=== PATIENT | female | born 1980 | race African-American/Black ===

== ENCOUNTER 2021-02-03 19:38 | Emergency (ER) | payer SELFPAY ==
[2021-02-03 20:36] LABS: Urine Blood Negative (Negative); Urine Glucose Negative (Negative); Urine Protein Negative (Negative); Urine Specific Gravity 1.025 (1.005-1.030)
[2021-02-03 20:39] LABS: Absolute Lymphocytes (CBC) 2.8 K/uL (0.7-4.9); Basophils % 0.8 % (0-1.3); Hematocrit 42.9 % (36.0-45.0); Lymphocytes % 31.8 % (15.3-44.8); RBC Red Blood Cell Count 5.15 M/uL (3.86-4.86)
[2021-02-03 20:47] LABS: ALT/SGPT 86 U/L (12-78); AST/SGOT 28 U/L (15-37); Albumin 3.2 g/dL (3.4-5.0); Alkaline Phosphatase 133 U/L (45-117); BUN Blood Urea Nitrogen 23 mg/dL (7-18); Bicarbonate 27 mmol/L (21-32); Bilirubin Direct < 0.1 mg/dL (0-0.2); Bilirubin Total 0.3 mg/dL (0.2-1.0); Glucose Level 121 mg/dL (74-106); Lipase 182 U/L (73-393); Potassium 4.2 mmol/L (3.5-5.1); Protein, Total 7.4 g/dL (6.4-8.2); Sodium Level 142 mmol/L (136-145)
[2021-02-03 20:51] LABS: Urine Bacteria <20 /HPF (<20); Urine RBC NONE SEEN /HPF (NONE SEEN)
[2021-02-03] MEDS ORDERED: MORPHINE 4 MG/ML SYR ONE (21:24)
[2021-02-03] MEDS ORDERED: NA CHLORIDE 0.9% 1,000 ML ONE (21:24)
[2021-02-03] MEDS ORDERED: ONDANSETRON 4 MG/2 ML VIAL ONE (21:24)
--- NOTE | 2021-02-03 21:40 | RAD REPORT ---
EXAM DESCRIPTION: CT - Abdomen Pelvis W Contrast - 02/03/2021 9:29 pm CLINICAL HISTORY: Abdominal pain COMPARISON: none. TECHNIQUE: Computed axial tomography of the abdomen pelvis was obtained. 100 cc Isovue-300 was admin istered intravenously. Oral contrast was not requested which limits evaluation of bowel. All CT scans are performed using dose optimization technique as appropriate and may include automated exposure control or mA/KV adjustment according to patient size. FINDINGS: The liver, spleen, pancreas, adrenal and right kidney appear unremarkable. Small left roderick l cyst. There is no evidence of diverticulitis. Normal appendix No adnexal mass IMPRESSION: No acute abnormality is displayed.
[2021-02-03 21:44] LABS: Urine Specific Gravity/Preg 1.025 (1.005-1.030)
[2021-02-03] MEDS ORDERED: FENTANYL CITR 100 MCG/2 ML ONE ×2 (21:49→22:06)
[2021-02-03] MEDS ORDERED: HYDROMORPHONE HCL 2 MG/ML inj ONE ×2 (22:34→23:24)
--- NOTE | 2021-02-04 00:10 | ER ---
Nurse's Notes [facility] Name: Noemí Alatorre Age: 40 yrs Sex: Female : 1980 Arrival Date: 02/03/2021 Time: 19:39 Bed 2 Private MD: Diagnosis: Female pelvic inflammatory disease, unspecified Presentation: 02/03 19:55 Chief complaint: Patient states: x2 days of pelvic pain, severe today; Reports pressure lp1 to pelvic area, burning with urination; Denies fever, N/V/D. Coronavirus screen: At this time, the client does not indicate any symptoms associated with coronavirus-19. Risk Assessment: Do you want to hurt yourself or someone else? Patient reports no desire to harm self or others. Onset of symptoms was February 03, 2021. 19:55 Method Of Arrival: Ambulatory lp1 19:55 Acuity: BETTE 2 lp1 19:57 Ebola Screen: No symptoms or risks identified at this time. Initial Sepsis Screen: Does lp1 the patient meet any 2 criteria? No. Patient's initial sepsis screen is negative. Does the patient have a suspected source of infection? No. Patient's initial sepsis screen is negative. 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 - Social history:: Smoking status: Patient reports the use of cigarette tobacco products, smokes one-half pack cigarettes per day. Screenin/01 00:54 Abuse screen: Denies threats or abuse. Denies injuries from another. Nutritional lp1 screening: No deficits noted. Tuberculosis screening: No symptoms or risk factors identified. Fall Risk None identified. Assessment: 02/03 20:15 General: Appears uncomfortable, obese, well groomed, well developed, well nourished, bs2 Behavior is cooperative, appropriate for age. Pain: Complains of pain in right lower quadrant Pain currently is 10 out of 10 on a pain scale. Pain began gradually, 1 day ago. Neuro: No deficits noted. Cardiovascular: No deficits noted. Respiratory: No deficits noted. GI: Abdomen is round non-distended, obese, Abd is soft and non tender X 4 quads. 02/04 00:54 Reassessment: Patient is alert, oriented x 3, equal unlabored respirations, skin lp1 warm/dry/pink. Patient states feeling better. Patient states symptoms have improved. Vital Signs: 02/03 19:57 BP 148 / 77; Pulse 93; Resp 20; Temp 98.5(O); Pulse Ox 97% on R/A; Weight 141.52 kg lp1 (R); Height 5 ft. 2 in. (157.48 cm); Pain 01/13; 19:57 Body Mass Index 57.06 (141.52 kg, 157.48 cm) lp1 ED Course: 19:39 Patient arrived in ED. bp1 19:56 Triage completed. lp1 19:56 Arm band placed on. lp1 20:05 Stefan Moore PA is PHCP. cp 20:05 Aron Turk MD is Attending Physician. cp 20:16 Kamilla Lyles, RN is Primary Nurse. bs2 20:30 Basic Metabolic Panel Sent. bs2 20:30 CBC with Diff Sent. bs2 20:30 Hepatic Function Sent. bs2 20:30 Lipase Sent. bs2 20:30 Urine Microscopic Only Sent. bs2 20:44 Urine --Ancillary (enter results) Sent. bs2 20:44 Urine Microscopic Only Sent. bs2 20:44 Urine Microscopic Only Sent. bs2 21:29 CT Abd/Pelvis - IV Contrast Only In Process Unspecified. EDMS 22:18 US Transvaginal Study (Probe) In Process Unspecified. EDMS 23:35 Wet Prep Sent. bs2 23:35 Wet Prep Sent. bs2 23:35 GC (GONORR/CHLAMYDIA) Probe Sent. bs2 02/04 00:08 Nancy Gamino MD is Referral Physician. cp 00:54 Patient has correct armband on for positive identification. lp1 00:54 IV discontinued, No redness/swelling at site. Pressure dressing applied. lp1 00:54 No provider procedures requiring assistance completed. lp1 Administered Medications: 02/03 20:27 Drug: morphine 4 mg Route: IVP; Site: left forearm; bs2 20:53 Follow up: Response: Pain is unchanged, physician notified bs2 20:27 Drug: Zofran (Ondansetron) 4 mg Route: IVP; Site: left forearm; bs2 20:53 Follow up: Response: No adverse reaction bs2 20:28 Drug: NS 0.9% 1000 ml Route: IV; Rate: 1 bolus; Site: left forearm; bs2 20:54 Drug: fentaNYL (PF) 50 mcg Route: IVP; Site: left forearm; bs2 21:17 Follow up: Response: Pain is unchanged, physician notified bs2 21:07 Drug: fentaNYL (PF) 50 mcg Route: IVP; Site: left forearm; bs2 22:20 Follow up: Response: No adverse reaction; Pain is unchanged, physician notified bs2 22:25 Drug: Dilaudid (HYDROmorphone) 1 mg Route: IVP; Site: left forearm; lh3 23:25 Drug: Dilaudid (HYDROmorphone) 1 mg Route: IVP; Site: left forearm; bs2 23:35 Drug: Rocephin (cefTRIAXone) 1 grams Route: IV; Rate: calculated rate; Site: left bs2 forearm; 23:35 Drug: Zithromax (azithromycin) 1 grams Route: PO; bs2 11 00:53 Drug: Hydrocodone-Acetaminophen (10 mg-500 mg) 1 tabs Route: PO; lp1 00:53 Follow up: Response: Medication administered at discharge. lp1 Outcome: 00:10 Discharge ordered by . cp 00:54 Discharged to home lp1 00:54 Condition: good 00:54 Discharge instructions given to patient, Instructed on discharge instructions, follow up and referral plans. medication usage, Demonstrated understanding of instructions, follow-up care, medications, Prescriptions given X 3. 01:00 Patient left the ED. lp1 Signatures: Dispatcher [employer] EDMS Karol Coates RN RN lp1 Stefan Moore PA PA cp Paniauga, Brittany bp1 Smith, Bridget, RN RN bs2 Mariella Jones RN RN lh3 Corrections: (The following items were deleted from the chart) 02/03 19:56 19:56 Allergies: No Known Allergies; lp1 lp1 19:56 19:56 PSHx: None; lp1 lp1 20:04 19:55 Acuity: BETTE 3 lp1 lp1
--- NOTE | 2021-02-04 00:11 | EDPHYS ---
Physician Documentation [facility] Name: Noemí Alatorre Age: 40 yrs Sex: Female : 1980 Arrival Date: 02/03/2021 Time: 19:39 Bed 2 Private MD: ED Physician Aron Turk HPI: 02/03 20:19 This 40 yrs old Black Female presents to ER via Ambulatory with complaints of Pain With cp Urination, Pelvic Pain. 20:19 The patient presents with abdominal pain right lower quadrant, right adnexal. Onset: cp The symptoms/episode began/occurred 2 day(s) ago. The symptoms do not radiate. Associated signs and symptoms: Pertinent positives: dysuria, vaginal discharge, Pertinent negatives: constipation, diarrhea, fever, vomiting. The symptoms are described as constant. Modifying factors: the symptoms are aggravated by movement. Severity of pain: in the emergency department the pain is unchanged. 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 - Social history:: Smoking status: Patient reports the use of cigarette tobacco products, smokes one-half pack cigarettes per day. ROS: 20:21 Constitutional: Negative for body aches, chills, fever, poor PO intake. cp 20:21 Abdomen/GI: Positive for abdominal pain. 20:21 Back: Negative for radiated pain. 20:21 : Positive for urinary symptoms, vaginal discharge. 20:21 Neuro: Negative for altered mental status, headache, weakness. 20:21 All other systems are negative. Exam: 20:22 Head/Face: Normocephalic, atraumatic. cp 20:22 Constitutional: The patient appears in no acute distress, alert, awake, non-toxic, well developed, well nourished, obese, uncomfortable. 20:22 Eyes: Periorbital structures: appear normal, Conjunctiva: normal, no exudate, no injection, Sclera: no appreciated abnormality, Lids and lashes: appear normal, bilaterally. 20:22 ENT: External ear(s): are unremarkable, Nose: is normal, Mouth: Lips: moist, Oral mucosa: moist, Posterior pharynx: Airway: no evidence of obstruction, patent. 20:22 Chest/axilla: Inspection: normal. 20:22 Cardiovascular: Rate: normal. 20:22 Respiratory: the patient does not display signs of respiratory distress, Respirations: normal, no use of accessory muscles, no retractions, labored breathing, is not present. 20:22 Abdomen/GI: Inspection: abdomen appears normal, Bowel sounds: active, all quadrants, Palpation: soft, in all quadrants, severe abdominal tenderness, in the right lower quadrant, rebound tenderness, is not appreciated, voluntary guarding, is elicited in the right lower quadrant. 23:12 : Pelvic Exam: External exam: is normal, Speculum exam: no bleeding is noted, no cp cervicitis, os that is closed, bimanual exam reveals cervical motion tenderness, uterine tenderness, right adnexal tenderness, no adnexal mass on right, no adnexal mass on left, discharge, white, the nurse was present for the exam, Sexual behavior: the patient is sexually active, and reports a single partner. Vital Signs: 19:57 BP 148 / 77; Pulse 93; Resp 20; Temp 98.5(O); Pulse Ox 97% on R/A; Weight 141.52 kg lp1 (R); Height 5 ft. 2 in. (157.48 cm); Pain 10/10; 19:57 Body Mass Index 57.06 (141.52 kg, 157.48 cm) lp1 MDM: 20:13 Patient medically screened. cp 21:00 Differential diagnosis: appendicitis, diverticulitis, Endometriosis, non-specific abd cp pain, Pyelonephritis, Ureterolithiasis, urinary tract infection, PID. 02/04 00:10 Data reviewed: vital signs, nurses notes, lab test result(s), radiologic studies, CT cp scan, ultrasound, I have discussed the patient's presentation/case with the attending Emergency Department Physician; and as a result, I will discharge patient. 00:10 Counseling: I had a detailed discussion with the patient and/or guardian regarding: the cp historical points, exam findings, and any diagnostic results supporting the discharge/admit diagnosis, lab results, radiology results, the need for outpatient follow up, an OB/Gyne specialist, to return to the emergency department if symptoms worsen or persist or if there are any questions or concerns that arise at home. Response to treatment: the patient's symptoms have markedly improved after treatment, and as a result, I will discharge patient. Special discussion: Based on the patient's Hx, exam, and Dx evaluation, there is no indication for emergent surgery or inpatient Tx. It is understood by the patient/guardian that if the Sx's persist or worsen they need to return immediately for re-evaluation. 02/03 20:05 Order name: Urine Microscopic Only cp 02/03 20:06 Order name: Urine Microscopic Only; Complete Time: 21:05 EDMS 02/03 20:14 Order name: Basic Metabolic Panel; Complete Time: 20:48 cp 02/03 20:48 Interpretation: Normal except: CL 109; GLUC 121; BUN 23; GFR 69; CA 8.4. 02/03 20:14 Order name: CBC with Diff; Complete Time: 20:48 02/03 21:06 Interpretation: Normal except: RBC 5.15. cp 02/03 20:14 Order name: Hepatic Function; Complete Time: 20:48 02/03 20:14 Order name: Lipase; Complete Time: 20:48 02/03 20:14 Order name: CT Abd/Pelvis - IV Contrast Only; Complete Time: 21:45 02/03 20:36 Order name: Urine Dipstick-Ancillary; Complete Time: 20:48 EDMS 02/03 20:40 Order name: Urine --Ancillary (enter results); Complete Time: 22:56 mw2 02/03 21:47 Order name: GC (GONORR/CHLAMYDIA) Probe 02/03 21:47 Order name: US Transvaginal Study (Probe) 02/03 23:16 Order name: Wet Prep 02/03 23:17 Order name: Wet Prep EDMS 02/03 20:05 Order name: Urine Test (obtain specimen); Complete Time: 20:44 02/03 20:05 Order name: Urine Dipstick-Ancillary (obtain specimen); Complete Time: 20:44 02/03 20:14 Order name: IV Saline Lock; Complete Time: 20:30 02/03 20:14 Order name: Labs collected and sent; Complete Time: 20:30 02/03 21:47 Order name: Pelvic Exam Setup; Complete Time: 23:35 cp Administered Medications: 02/03 20:27 Drug: morphine 4 mg Route: IVP; Site: left forearm; bs2 20:53 Follow up: Response: Pain is unchanged, physician notified bs2 20:27 Drug: Zofran (Ondansetron) 4 mg Route: IVP; Site: left forearm; bs2 20:53 Follow up: Response: No adverse reaction bs2 20:28 Drug: NS 0.9% 1000 ml Route: IV; Rate: 1 bolus; Site: left forearm; bs2 20:54 Drug: fentaNYL (PF) 50 mcg Route: IVP; Site: left forearm; bs2 21:17 Follow up: Response: Pain is unchanged, physician notified bs2 21:07 Drug: fentaNYL (PF) 50 mcg Route: IVP; Site: left forearm; bs2 22:20 Follow up: Response: No adverse reaction; Pain is unchanged, physician notified bs2 22:25 Drug: Dilaudid (HYDROmorphone) 1 mg Route: IVP; Site: left forearm; lh3 23:25 Drug: Dilaudid (HYDROmorphone) 1 mg Route: IVP; Site: left forearm; bs2 23:35 Drug: Rocephin (cefTRIAXone) 1 grams Route: IV; Rate: calculated rate; Site: left bs2 forearm; 23:35 Drug: Zithromax (azithromycin) 1 grams Route: PO; bs2 02/04 00:53 Drug: Hydrocodone-Acetaminophen (10 mg-500 mg) 1 tabs Route: PO; lp1 00:53 Follow up: Response: Medication administered at discharge. lp1 Disposition: 00:30 Chart complete. cp 06:43 Co-signature as Attending Physician, Aron Turk MD I agree with the assessment and sp3 plan of care. Disposition Summary: 02/04/21 00:10 Discharge Ordered Location: Home cp Problem: new cp Symptoms: have improved cp Condition: Stable cp Diagnosis - Female pelvic inflammatory disease, unspecified cp Followup: cp - With: Nancy Gamino MD - When: 1 week - Reason: Recheck today's complaints Discharge Instructions: - Discharge Summary Sheet cp - Pelvic Inflammatory Disease cp - Pelvic Pain, Female cp - Form - Excuse from Work, School, or Physical Activity cp Forms: - Medication Reconciliation Form cp - Thank You Letter cp - Antibiotic Education cp - Prescription Opioid Use cp - Work release form lp1 Prescriptions: - Doxycycline Hyclate 100 mg Oral Tablet - take 1 tablet by ORAL route every 12 hours; 20 tablet; Refills: 0, Product cp Selection Permitted - Metronidazole 500 mg Oral Tablet - take 1 tablet by ORAL route every 8 hours; 30 tablet; Refills: 0, Product cp Selection Permitted - Tramadol 50 mg Oral Tablet - take 1 tablet by ORAL route every 8 hours as needed; 12 tablet; Refills: 0, cp Product Selection Permitted Signatures: Dispatcher [employer] EDMS Karol Coates RN RN lp1 Stefan Moore PA PA cp Aron Turk MD MD sp3 Kamilla Lyles RN RN bs2 Mariella Jones RN RN lh3 Corrections: (The following items were deleted from the chart) 02/03 19:56 19:56 Allergies: No Known Allergies; lp1 lp1 19:56 19:56 PSHx: None; lp1 lp1
[2021-02-04] MEDS ORDERED: AZITHROMYCIN 250 MG TAB ONE (00:19)
[2021-02-04] MEDS ORDERED: CEFTRIAXONE 1000 MG/VIAL ONE (00:20)
[2021-02-04 01:30] VITALS: BP 148/77; TEMP 98.5; O2SAT 97
[2021-02-04] MEDS ORDERED: HYDROCODONE/APAP 10/325 TAB ONE (01:42)
--- NOTE | 2021-02-04 08:23 | RAD REPORT ---
EXAM DESCRIPTION: US - Transvaginal Study Probe - 02/03/2021 10:18 pm CLINICAL HISTORY: lower abdomen pain Preliminary findings provided to the referring clinician at the time of the study. COMPARISON: Abdomen Pelvis W Contrast dated 02/03/2021 TECHNIQUE: Endovaginal sonography was performed. FINDINGS: Normal size uterus is present measuring 4.4 x 2.2 x 2.7 cm. No myometrial or endometrial a bnormality. Endometrium is 2 mm in thickness. Neither ovary was identifiable due to body habitus affects and prominent bowel. Patient indicates lucero or oophorectomy but she was unable to recall which ovary was removed. On CT imaging the left ovary wa s not identifiable. The right ovary is seen along the superior margin of the uterus in the anterior a bdomen. No gross uterine abnormality seen. No blood or fluid in the cul de sac. No adnexal mass seen. IMPRESSION: No uterine abnormality identified. Neither ovary was identified due to bowel gas. Based on the CT, left ovary is surgically absent. No adnexal abnormalities identifiable.
[2021-02-08 19:46] LABS: C.trachomatis RNA,TMA Not Detected (Not Detected)
== END 2021-02-04 01:00 | disposition home or self-care (01) ==
LOC: ER 19:38
DX: N73.9 Female pelvic inflammatory disease, unspecified (principal); F17.210 Nicotine dependence, cigarettes, uncomplicated; Z88.6 Allergy status to analgesic agent
CPT/HCPCS: 36415; 74177; 76830; 80048; 80076; 81003; 81015; 81025; 83690; 85025; 87210; 87490; 87590; 96374; 96375; 99284; J1170; J2405; J3010; J7030; Q9967